=== PATIENT | male | born 1940 | race Caucasian/White ===

== ENCOUNTER 2017-03-10 16:39 | Inpatient (IN) | payer MEDICARE, OTHER ==
[~2017-03-10] VITALS: Ht 172.7 cm; Wt 89.8 kg
[2017-03-10 17:25] VITALS: BP 93/64
[2017-03-10] MEDS ORDERED: SODIUM CHLORIDE 0.9% 1,000 ML IV SCH (18:00)
[2017-03-10] MEDS ORDERED: ASPI-496 PO (18:02)
[2017-03-10] MEDS ORDERED: ATOR-2 PO (18:02)
[2017-03-10] MEDS ORDERED: FLUT1AER INH (18:02)
[2017-03-10] MEDS ORDERED: FINA5TAB4 PO (18:02)
[2017-03-10] MEDS ORDERED: IRBE75TA10 PO (18:02)
[2017-03-10] MEDS ORDERED: FLUO10CA13 PO (18:02)
[2017-03-10] MEDS ORDERED: TAMS-11 PO (18:02)
[2017-03-10 18:20] LABS: HEMATOCRIT 38.3 % (39.2-51.8); HEMOGLOBIN 12.6 g/dL (13.7-18.0); WHITE BLOOD COUNT 27.7 x10^3/uL (3.4-10)
[2017-03-10 18:31] LABS: ASPARTATE AMINO TRANSFERASE 267 U/L (15-37); BLOOD UREA NITROGEN 45 mg/dL (7-18)
[2017-03-10 19:03] LABS: ANISOCYTOSIS 2+; MICROCYTOSIS 1+; POIKILOCYTOSIS 2+
[2017-03-10 19:04] LABS: STOMATOCYTES 1+
[2017-03-10 19:05] LABS: GIANT PLATELETS 1+; LARGE PLATELETS 1+
[2017-03-10 19:34] VITALS: BP 91/57
[2017-03-10] MEDS: INSULIN ASPART 100 UNITS/ML, PEN SQ-INSULIN SCH (20:28)
[2017-03-10] MEDS ORDERED: INSULIN NPH HUMAN 100 UNIT/ML, 3ML VIAL SQ-INSULIN ONE (21:30)
[2017-03-10] MEDS ORDERED: DIPHENHYDRAMINE 25 MG CAPSULE PO PRN (21:30)
[2017-03-10] MEDS: CEFTRIAXONE PMX 1GM/50ML 50 ML IV SCH (22:22)
[2017-03-10] MEDS: INSULIN DETEMIR 100 UNITS/ML, PEN SQ-INSULIN SCH (22:49)
[2017-03-10] MEDS: ZOLPIDEM 10MG TABLET PO PRN (23:44)
[2017-03-11 00:56] VITALS: BP 91/51
[2017-03-11] MEDS ORDERED: SODIUM CHLORIDE 0.9% 1,000ML IVBOLUS ONE (03:00)
[2017-03-11 03:32] VITALS: BP 90/54
[2017-03-11] MEDS: SODIUM CHLORIDE 0.9% 1,000 ML IV SCH ×3 (05:47→20:10)
[2017-03-11 05:49] VITALS: BP 94/58
[2017-03-11 06:40] VITALS: BP 92/56
[2017-03-11] MEDS: TAMSULOSIN 0.4 MG CAP.ER.24H PO SCH (08:28)
[2017-03-11] MEDS: FINASTERIDE 5 MG TABLET PO SCH (08:28)
[2017-03-11] MEDS: INSULIN DETEMIR 100 UNITS/ML, PEN SQ-INSULIN SCH (08:29)
[2017-03-11] MEDS: CEFTRIAXONE PMX 1GM/50ML 50 ML IV SCH ×2 (08:29→20:50)
[2017-03-11] MEDS: INSULIN ASPART 100 UNITS/ML, PEN SQ-INSULIN SCH ×4 (08:30→20:50)
[2017-03-11 09:36] LABS: HEMATOCRIT 34.2 % (39.2-51.8); HEMOGLOBIN 11.4 g/dL (13.7-18.0); WHITE BLOOD COUNT 20.1 x10^3/uL (3.4-10)
[2017-03-11 09:54] LABS: DIFF TOTAL CELLS COUNTED 100 CELL DIFF
[2017-03-11 09:55] LABS: ANISOCYTOSIS 1+; VERIFY COUNTS? YES
[2017-03-11 09:56] LABS: LARGE PLATELETS 1+; POIKILOCYTOSIS 1+
[2017-03-11] MEDS: FLUTICASONE/VILANTEROL 100-25MCG/INH INH SCH (10:04)
[2017-03-11 10:41] LABS: ASPARTATE AMINO TRANSFERASE 288 U/L (15-37); BLOOD UREA NITROGEN 46 mg/dL (7-18)
[2017-03-11 11:17] LABS: HEPATITIS A ANTIBODY TOTAL Nonreactive (Nonreactive)
[2017-03-11] MEDS ORDERED: PHYTONADIONE 10 MG/ML, 1ML SQ ONE (12:00)
[2017-03-11] MEDS ORDERED: GADOBUTROL 10 MMOL/10 ML VIAL ONE (12:42)
[2017-03-11] MEDS ORDERED: SODIUM CHLORIDE 0.9% 1,000 ML IV SCH ×2 (18:00→21:00)
[2017-03-11] MEDS: GLIMEPIRIDE 1 MG TABLET PO SCH (18:37)
[2017-03-11 18:40] VITALS: BP 105/65
[2017-03-11] MEDS: ZOLPIDEM 10MG TABLET PO PRN (22:10)
[2017-03-12] MEDS: SODIUM CHLORIDE 0.9% 1,000 ML IV SCH ×3 (02:42→21:08)
[2017-03-12 03:43] VITALS: BP 105/64
[2017-03-12] MEDS ORDERED: SODIUM CHLORIDE 0.9% 1,000 ML IV SCH (04:00)
[2017-03-12 04:55] LABS: HEMATOCRIT 32.4 % (39.2-51.8); HEMOGLOBIN 10.7 g/dL (13.7-18.0); WHITE BLOOD COUNT 13.8 x10^3/uL (3.4-10)
[2017-03-12 05:06] LABS: BLOOD UREA NITROGEN 23 mg/dL (7-18)
[2017-03-12 05:25] LABS: ASPARTATE AMINO TRANSFERASE 347 U/L (15-37)
[2017-03-12 05:42] LABS: DIFF TOTAL CELLS COUNTED 100 CELL DIFF
[2017-03-12 05:44] LABS: ANISOCYTOSIS 1+; VERIFY COUNTS? YES
[2017-03-12 05:45] LABS: LARGE PLATELETS 1+
[2017-03-12 06:55] VITALS: BP 104/64
[2017-03-12] MEDS: INSULIN ASPART 100 UNITS/ML, PEN SQ-INSULIN SCH ×4 (07:00→21:00)
[2017-03-12] MEDS: CEFTRIAXONE PMX 1GM/50ML 50 ML IV SCH ×2 (09:00→21:07)
[2017-03-12] MEDS: FLUTICASONE/VILANTEROL 100-25MCG/INH INH SCH (11:44)
[2017-03-12] MEDS: TAMSULOSIN 0.4 MG CAP.ER.24H PO SCH (11:44)
[2017-03-12] MEDS: GLIMEPIRIDE 1 MG TABLET PO SCH ×2 (11:45→16:29)
[2017-03-12] MEDS: FINASTERIDE 5 MG TABLET PO SCH (11:45)
[2017-03-12] MEDS: INSULIN DETEMIR 100 UNITS/ML, PEN SQ-INSULIN SCH (11:46)
[2017-03-12 12:39] VITALS: BP 103/64
[2017-03-12] MEDS ORDERED: DOCUSATE 100 MG CAPSULE ONE (16:18)
[2017-03-12] MEDS ORDERED: DOCUSATE 100 MG CAPSULE PO PRN (16:30)
[2017-03-12 19:10] VITALS: BP 124/82
[2017-03-12] MEDS: ZOLPIDEM 10MG TABLET PO PRN (22:51)
[2017-03-13 04:47] VITALS: BP 120/81
[2017-03-13] MEDS: SODIUM CHLORIDE 0.9% 1,000 ML IV SCH (04:55)
[2017-03-13 06:58] VITALS: BP 99/62
[2017-03-13] MEDS: INSULIN ASPART 100 UNITS/ML, PEN SQ-INSULIN SCH ×4 (07:00→20:54)
[2017-03-13] MEDS ORDERED: hydrOXyzine 10MG TABLET PO PRN (08:00)
[2017-03-13] MEDS: FLUTICASONE/VILANTEROL 100-25MCG/INH INH SCH (09:00)
[2017-03-13] MEDS: CEFTRIAXONE PMX 1GM/50ML 50 ML IV SCH ×2 (09:26→20:54)
[2017-03-13] MEDS: TAMSULOSIN 0.4 MG CAP.ER.24H PO SCH (09:26)
[2017-03-13] MEDS: FINASTERIDE 5 MG TABLET PO SCH (09:27)
[2017-03-13] MEDS: GLIMEPIRIDE 1 MG TABLET PO SCH ×2 (09:27→17:44)
[2017-03-13] MEDS: INSULIN DETEMIR 100 UNITS/ML, PEN SQ-INSULIN SCH (09:36)
[2017-03-13] MEDS ORDERED: DIAZEPAM 10 MG TABLET PO PRN (11:00)
[2017-03-13 14:21] VITALS: BP 85/54
[2017-03-13 15:57] VITALS: BP 103/64
[2017-03-13 19:20] VITALS: BP 114/69
[2017-03-13] MEDS: ZOLPIDEM 10MG TABLET PO PRN (22:31)
[2017-03-14 03:31] VITALS: BP 98/63
[2017-03-14 06:55] VITALS: BP 106/68
[2017-03-14] MEDS: INSULIN ASPART 100 UNITS/ML, PEN SQ-INSULIN SCH ×4 (08:22→21:12)
[2017-03-14] MEDS: GLIMEPIRIDE 1 MG TABLET PO SCH ×2 (08:23→17:16)
[2017-03-14] MEDS: TAMSULOSIN 0.4 MG CAP.ER.24H PO SCH (08:24)
[2017-03-14] MEDS: FINASTERIDE 5 MG TABLET PO SCH (08:24)
[2017-03-14] MEDS: FLUTICASONE/VILANTEROL 100-25MCG/INH INH SCH (08:24)
[2017-03-14] MEDS: INSULIN DETEMIR 100 UNITS/ML, PEN SQ-INSULIN SCH (08:32)
[2017-03-14] MEDS: CEFTRIAXONE PMX 1GM/50ML 50 ML IV SCH (09:00)
[2017-03-14 13:20] VITALS: BP 104/62
[2017-03-14 18:50] VITALS: BP 114/65
[2017-03-14] MEDS: ZOLPIDEM 10MG TABLET PO PRN (22:51)
[2017-03-15 01:30] VITALS: BP 90/58
[2017-03-15] MEDS: CEFTRIAXONE PMX 1GM/50ML 50 ML IV SCH ×2 (04:25→16:12)
[2017-03-15 04:30] LABS: HEMATOCRIT 29.1 % (39.2-51.8); HEMOGLOBIN 10.1 g/dL (13.7-18.0); WHITE BLOOD COUNT 12.9 x10^3/uL (3.4-10)
[2017-03-15 04:43] LABS: ASPARTATE AMINO TRANSFERASE 149 U/L (15-37); BLOOD UREA NITROGEN 14 mg/dL (7-18)
[2017-03-15 05:33] LABS: DIFF TOTAL CELLS COUNTED 100 CELL DIFF
[2017-03-15 05:35] LABS: ANISOCYTOSIS 1+; LARGE PLATELETS 1+; POIKILOCYTOSIS 1+; VERIFY COUNTS? YES
[2017-03-15] MEDS: INSULIN ASPART 100 UNITS/ML, PEN SQ-INSULIN SCH ×4 (07:00→21:38)
[2017-03-15 07:02] VITALS: BP 114/66
[2017-03-15] MEDS: GLIMEPIRIDE 1 MG TABLET PO SCH ×2 (08:00→17:00)
[2017-03-15] MEDS: INSULIN DETEMIR 100 UNITS/ML, PEN SQ-INSULIN SCH (09:00)
[2017-03-15] MEDS: FLUTICASONE/VILANTEROL 100-25MCG/INH INH SCH (09:00)
[2017-03-15] MEDS ORDERED: POTASSIUM CHLORIDE 40 MEQ in SODIUM CHLORIDE 0.9% 500 ML IV SCH (09:30)
[2017-03-15] MEDS: MORPHINE SULFATE 4 MG/ML, 1ML IVPush PRN ×2 (09:44→09:48)
[2017-03-15] MEDS ORDERED: ROCURONIUM 10 MG/ML ONE (14:26)
[2017-03-15] MEDS ORDERED: SUCCINYLCHOLINE 20 MG/ML, 10ML ONE (14:26)
[2017-03-15] MEDS ORDERED: PROPOFOL 10 MG/ML, 20ML ONE (14:26)
[2017-03-15] MEDS ORDERED: ONDANSETRON 2MG/ML, 2ML IVPush PRN (15:00)
[2017-03-15] MEDS ORDERED: HYDROmorphone 1 MG/ML, 1ML IV PRN (15:00)
[2017-03-15] MEDS ORDERED: OXYcodone 5 MG/5 ML ORAL.SOL UDC PO PRN (15:00)
[2017-03-15] MEDS ORDERED: FENTANYL PF 100 MCG/2ML IV PRN (15:00)
[2017-03-15] MEDS ORDERED: LABETALOL 5MG/ML, 20ML IV PRN (15:00)
[2017-03-15] MEDS ORDERED: OMNIPAQUE 350 MG/ML, 50 ML BOTTLE ONE (15:18)
[2017-03-15] MEDS ORDERED: HYDROmorphone 1 MG/ML, 1ML ONE (15:29)
[2017-03-15] MEDS ORDERED: FENTANYL PF 100 MCG/2ML ONE (15:30)
[2017-03-15] MEDS: TAMSULOSIN 0.4 MG CAP.ER.24H PO SCH (16:12)
[2017-03-15] MEDS: FINASTERIDE 5 MG TABLET PO SCH (16:13)
[2017-03-15 20:36] VITALS: BP 93/62
[2017-03-15] MEDS: ZOLPIDEM 10MG TABLET PO PRN (21:33)
[2017-03-15 23:35] VITALS: BP 120/76
[2017-03-16 01:40] VITALS: BP 97/66
[2017-03-16] MEDS: CEFTRIAXONE PMX 1GM/50ML 50 ML IV SCH (03:58)
[2017-03-16 05:16] LABS: WHITE BLOOD COUNT 12.2 x10^3/uL (3.4-10)
[2017-03-16 05:17] LABS: HEMATOCRIT 26.3 % (39.2-51.8)
[2017-03-16 05:21] LABS: BLOOD UREA NITROGEN 15 mg/dL (7-18)
[2017-03-16 05:26] LABS: ASPARTATE AMINO TRANSFERASE 85 U/L (15-37)
[2017-03-16 05:47] LABS: DIFF TOTAL CELLS COUNTED 100 CELL DIFF
[2017-03-16 05:51] LABS: LARGE PLATELETS 1+; VERIFY COUNTS? YES
[2017-03-16 05:52] LABS: ANISOCYTOSIS 1+; POIKILOCYTOSIS 1+
[2017-03-16 07:43] VITALS: BP 102/71
[2017-03-16] MEDS: FINASTERIDE 5 MG TABLET PO SCH (08:08)
[2017-03-16] MEDS: GLIMEPIRIDE 1 MG TABLET PO SCH (08:08)
[2017-03-16] MEDS: FLUTICASONE/VILANTEROL 100-25MCG/INH INH SCH (08:08)
[2017-03-16] MEDS: TAMSULOSIN 0.4 MG CAP.ER.24H PO SCH (08:08)
[2017-03-16] MEDS: INSULIN ASPART 100 UNITS/ML, PEN SQ-INSULIN SCH (08:17)
[2017-03-16] MEDS: INSULIN DETEMIR 100 UNITS/ML, PEN SQ-INSULIN SCH (08:17)
[2017-03-16] MEDS ORDERED: GLIM1TAB PO (11:56)
[2017-03-17] MEDS ORDERED: GLIMEPIRIDE 1 MG TABLET PO SCH (09:00)
== END 2017-03-16 12:45 | disposition home health service (06) | DRG 871 ==
LOC: 3NE 16:39 → 3NW 03-11 21:45
PROVIDERS: ADMIT Internal Medicine; ATTEND Internal Medicine
PROC: BF141ZZ Fluoroscopy of Gallbladder, Bile Ducts and Pancreatic Ducts using Low Osmolar Contrast (ICD-10-PCS; 2017-03-15)
PROC: 0F798DZ Dilation of Common Bile Duct with Intraluminal Device, Via Natural or Artificial Opening Endoscopic (ICD-10-PCS; 2017-03-15)
PROC: 0FBG4ZX Excision of Pancreas, Percutaneous Endoscopic Approach, Diagnostic (ICD-10-PCS; 2017-03-15)
PROC: 0DB68ZX Excision of Stomach, Via Natural or Artificial Opening Endoscopic, Diagnostic (ICD-10-PCS; principal; 2017-03-15 15:00)
DX: A41.9 Sepsis, unspecified organism (principal); K83.1 Obstruction of bile duct; N17.9 Acute kidney failure, unspecified; C25.0 Malignant neoplasm of head of pancreas; C78.7 Secondary malignant neoplasm of liver and intrahepatic bile duct; D47.3 Essential (hemorrhagic) thrombocythemia; I10 Essential (primary) hypertension; E87.1 Hypo-osmolality and hyponatremia; J44.9 Chronic obstructive pulmonary disease, unspecified; F32.9 Major depressive disorder, single episode, unspecified; E11.9 Type 2 diabetes mellitus without complications; E78.5 Hyperlipidemia, unspecified; R53.1 Weakness; R63.4 Abnormal weight loss; F17.200 Nicotine dependence, unspecified, uncomplicated; K29.50 Unspecified chronic gastritis without bleeding; L29.9 Pruritus, unspecified; M54.9 Dorsalgia, unspecified; G89.29 Other chronic pain; F41.9 Anxiety disorder, unspecified; M17.0 Bilateral primary osteoarthritis of knee; N40.0 Benign prostatic hyperplasia without lower urinary tract symptoms; R79.1 Abnormal coagulation profile; Z66 Do not resuscitate; Z80.51 Family history of malignant neoplasm of kidney; Z80.52 Family history of malignant neoplasm of bladder; Z81.8 Family history of other mental and behavioral disorders; Z86.61 Personal history of infections of the central nervous system; Z98.41 Cataract extraction status, right eye; Z98.42 Cataract extraction status, left eye
CPT/HCPCS: 36415; 74176; 74183; 74328; 80053; 81001; 82947; 82962; 83036; 83605; 83690; 85025; 85610; 86301; 86704; 86708; 86803; 87040; 87086; 88172; 88173; 88177; 88305; 88307; 93005; A9585; J0696; J1170; J1815; J2704; J3010; J3430; J3480; Q9967; C1769; C1876; J0330; J7030; J7040; Q0163